=== PATIENT | female | born 1985 | race Caucasian/White ===

== ENCOUNTER 2017-09-27 14:29 | Emergency (ER) | payer OTHER, MEDICAID ==
[~2017-09-27] VITALS: Ht 149.9 cm; Wt 81.7 kg
[~2017-09-27 14:29] MED LIST: ATIVAN1 MG PO; BACTRIM DS TAB1 EACH PO; CIPROFLOXACIN500 M1 PO; CITRATE OF MAG296 ML PO; COLACE100 MG PO; KEFLEX500 MG PO; NAPROSYN500 MG PO; NOHOMEMEDICATIONS; NORCO 5-325 TA1 EACH PO; PROZAC10 MG PO; TORADOL 10 MG T10 MG PO; TRAMADOL 50 MG50 MG PO; ULTRAM 50MG TAB50 MG PO
[2017-09-27] MEDS ORDERED: ASPIR 8181 MG PO (14:43)
[2017-09-27] MEDS ORDERED: PERCOCET PO (14:43)
[2017-09-27] MEDS ORDERED: ACETAMINOPHEN-1 EAC1 PO (14:52)
[2017-09-27] MEDS ORDERED: IBUPROFEN 600600 M1 PO (14:52)
[2017-09-27] MEDS ORDERED: AUGMENTIN 875-1 EACH PO (14:52)
[2017-09-27 14:59] VITALS: BP 131/86
== END 2017-09-27 15:00 | disposition home or self-care (01) ==
LOC: M.ERS 14:29
DX: J32.9 Chronic sinusitis, unspecified (principal); Z86.73 Personal history of transient ischemic attack (TIA), and cerebral infarction without residual deficits